=== PATIENT | female | born 1985 | race Caucasian/White ===

== ENCOUNTER 2024-08-26 19:49 | Emergency (ER) | payer OTHER, MEDICAID, SELFPAY ==
[2024-08-26 19:58] VITALS: BP 134/86; PULSE 97; RESP 16; TEMP 36.8; O2SAT 99; BMI 34.4
--- NOTE | 2024-08-26 20:32 | PC.NURSE ---
provider at the bedside
--- NOTE | 2024-08-26 20:35 | XR_ITS ---
PROCEDURE INFORMATION: Exam: XR Left Elbow Exam date and time: 08/26/2024 8:39 PM Age: 39 years old Clinical indication: Injury or trauma; Fall; Blunt trauma (contusions or hematomas); Elbow; Left; Additional info: Elbow injury TECHNIQUE: Imaging protocol: Radiologic exam of the left elbow. Views: 3 or more views. COMPARISON: No relevant prior studies available. FINDINGS: Bones/joints: Normal. Soft tissues: Normal. IMPRESSION: No acute findings.
--- NOTE | 2024-08-26 20:37 | HMH.EDGENADL ---
Discharge Plan Disposition Patient Disposition: Home, Self-Care Referrals Follow up/Referrals: Renny Gutierrez MD [Primary Care Provider] - See instructions Activity Restrictions/Add. Instructions Additional Instructions/Restrictions: Please apply topical antibiotic ointment to your wound daily return with any spreading redness or pus coming from the wound otherwise have your sutures removed in 7 to 10 days. Clinical Impressions Clinical Impression: Injury of elbow, left, Elbow laceration, Fall Instructions Patient Instructions: DI for Laceration Repair Print Language Print Language: Hungarian Discharge ED Provider: Ciara Hollis General Adult HPI General Chief complaint: Wound/Laceration Stated complaint: Ao02/21@1900 LT elbow inj Time Seen by Provider: 08/26/24 20:32 Mode of Arrival: Ambulatory Source of Information: Patient Limitations: No Limitations Description of Symptoms (Recalled from ER Triage Doc. by RN): Pt states she slipped on snow/ice at the [employer] parking lot. Has a small laceration to her left elbow. Dressing applied in triage, bleeding is controlled. Pt states T-dap is up to date. History of Present Illness HPI narrative: Patient is a 39-year-old female presented with left elbow injury. States she slipped on some on ice and fell directly onto her left elbow. Denies any head neck chest abdomen pelvis or long bone injuries normally has an injury or pain in her left elbow. Did sustain a laceration from historical standpoint. Patient is not sure exactly when her last tetanus immunization was given but she believes it may have been within the last 10 years but is okay with updating it today. Related Data Allergies Allergy/AdvReac Type Severity Reaction Status Date / Time Erythromycin Allergy Unknown Uncoded 06/23/17 15:13 From Penicillin G Sodium Allergy Unknown Uncoded 06/23/17 15:13 Penicillin Allergy Unknown Uncoded 06/23/17 15:13 [facility] Disclaimer: The information contained in this section may have been updated after the patient was seen, as this information can be updated by other users. Social History Smoking Status: Never smoker alcohol intake: never current occupational status: other Travel in the last 8 weeks: None ROS Obtained: Yes All systems reviewed & no additional complaints except as documented Physical Exam General General appearance: alert and in no apparent distress Head Head exam: atraumatic and normocephalic Neck Neck exam: Present full ROM; Absent tenderness Chest Chest inspection: Present normal inspection Respiratory Respiratory exam: Present normal lung sounds bilaterally; Absent respiratory distress Cardiovascular Cardiovascular exam: Present regular rate and normal rhythm Extremities Exam Extremities exam: Present other (Left elbow there is a 2 cm laceration overlying the olecranon no deep continuation with the joint itself full range of motion no obvious other soft tissue abnormalities neurovascular tact distal to this injury) Neurological Exam Neurological exam: Present alert and oriented X3 Medical Decision Making Medical Records Screening: Per USPSTF and CDC recommendations, given the prevalence of disease in our region, it is our hospital?s policy to screen for HIV and viral Hepatitis for all patients aged 18 and over and those with ongoing risk factors. Stevie Inquiry Pt receiving controlled substance: No Vital Signs: 08/26/24 19:58 Temperature 98.3 F Temperature Source Temporal Artery Scan Pulse Rate [Right] 97 H Respiratory Rate 16 Blood Pressure [Right Arm] 134/86 Blood Pressure Mean [Right Arm] 102 Blood Pressure Source [Right Arm] Automatic Cuff Blood Pressure Position [Right Arm] Sitting 02 Sat by Pulse Oximetry 99 Oxygen Delivery Method Room Air Orders (Tests/Meds): ED MEDICATIONS Discontinued Medications Generic Name Dose Route Start Last Admin Trade Name Freq PRN Reason Stop Dose Admin Acetaminophen 1,000 mg 08/26/24 20:35 08/26/24 20:42 Acetaminophen 500mg Tab PO 08/26/24 20:36 1,000 mg ONCE ONE Administration Tetanus/Reduced Diphtheria/Acell Pertussis 0.5 ml 08/26/24 20:35 08/26/24 20:42 Tet/Diphth/Pert-Adult 0.5ml Syringe IM 08/26/24 20:36 0.5 ml .ONCE ONE Administration ORDERS Category Date Time Status Elbow XR left mininum 3 views [XR elbow LT min 3V] Stat Exams 08/26/24 20:35 Taken Medical Decision Narrative: Patient with above history and physical. She does not appear to have from historical or clinical standpoint any injuries elsewhere outside of the elbow. She does have a new laceration overlying the olecranon of the left elbow. This will require several sutures. Will obtain an x-ray to rule out any fracture or underlying dislocation which is unlikely. Clinically this is not consistent with a traumatic arthrotomy. Will not challenge the joint. Tetanus will be updated as well. X-ray performed which I personally interpreted which shows no evidence of any fracture or dislocation. Laceration successfully repaired Tdap updated return precautions and suture removal instructions given patient discharged in stable condition. Procedures Laceration Laceration 1: Site: upper extremity (Left elbow) Size (cm): 3 Description: linear Depth: simple, single layer Local Anesthetic: lidocaine 1% Amount of anesthesia used (mL): 5 Pre-repair: wound explored and irrigated extensively Skin layer closed with: nylon Size (cm): 3-0 Number of sutures: 4 Technique: simple, interrupted Critical Care Critical Care Time Critical Care Time: No
[2024-08-26] MEDS: TET/DIPHTH/PERT-ADULT 0.5ML SYRINGE 0.5 ML IM (20:42)
[2024-08-26] MEDS: ACETAMINOPHEN 500MG TAB 1000 MG PO (20:42)
--- NOTE | 2024-08-26 20:51 | PC.NURSE ---
provider at the bedside for lac repair.
[2024-08-26 21:03] VITALS: BP 141/97; PULSE 90; RESP 14; TEMP 36.6; O2SAT 98
--- NOTE | 2024-08-26 21:04 | PC.NURSE ---
bacitracin and gauze dressing applied to left elbow and secured with tape
[2024-08-26] MEDS: BACITRACIN OINT 0.9GM UDP 1 EACH TP (21:06)
== END 2024-08-26 21:05 | disposition home or self-care (01) ==
PROVIDERS: Emergency Provider Student in an Organized Health Care Education/Training Program; PCP Pediatrics
DX: S51.019A Laceration without foreign body of unspecified elbow, initial encounter (principal); S59.902A Unspecified injury of left elbow, initial encounter; M25.522 Pain in left elbow; W00.0XXA Fall on same level due to ice and snow, initial encounter; Y93.89 Activity, other specified; Y92.512 Supermarket, store or market as the place of occurrence of the external cause; Z23 Encounter for immunization
CPT/HCPCS: 12002; 73080; 90471; 90715; 99283

== ENCOUNTER 2024-09-14 17:42 | Outpatient (CLI) | payer OTHER, MEDICAID, SELFPAY ==
[2024-09-14 20:18] LABS: Coronavirus 19, PCR Not Detected (NotDetected); Human Rhinovirus Not Detected (NotDetected); Influenza A, PCR Not Detected (NotDetected); Influenza B, PCR Not Detected (NotDetected); Respiratory Syncytial Virus Not Detected (NotDetected)
== END 2024-09-14 23:59 | disposition home or self-care (01) ==
LOC: LAB.DROPOF 09-15 10:56
PROVIDERS: PCP Nurse Practitioner; Visit Provider Nurse Practitioner
DX: J06.9 Acute upper respiratory infection, unspecified (principal)
CPT/HCPCS: 87631